=== PATIENT | male | born 1995 | race Hispanic/Latino ===

== ENCOUNTER 2018-07-25 08:40 | Emergency (ER) | payer SELFPAY ==
[2018-07-25 08:46] VITALS: BP 139/70
[2018-07-25] MEDS ORDERED: ZOFRAN IV ONE (09:11)
[2018-07-25] MEDS ORDERED: NACL 0.9% 1000 ML 1,000 ML IV ONE (09:11)
--- NOTE | 2018-07-25 09:17 | Emergency Department Report ---
ED General Adult HPI - General Chief complaint: Upper Respiratory Infection Stated complaint: FLU LIKE SYMPTOMS Time Seen by Provider: 07/25/18 09:04 Source: patient Mode of arrival: Ambulatory Limitations: No Limitations - History of Present Illness Initial comments: Patient presents to emergency department with a chief complaint nausea vomiting and feeling lightheaded that started yesterday. 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 Patient states the job he was working on yesterday spells come to [employer]. Patient states when he arrived home he felt lightheaded and had 4 or 5 episodes of vomiting. Patient states for the last 2-3 weeks she's had intermittent episodes of vomiting but yesterday was physically worse. Patient denies abdominal pain, chest pain, or shortness of breath. -: Sudden Severity scale (0 -10): 0 Consistency: constant Improves with: none Worsens with: none Associated Symptoms: denies other symptoms Treatments Prior to Arrival: none - Related Data Previous Rx's Medication Instructions Recorded Last Taken Type ALBUTEROL Inhaler(NF) [VENTOLIN 1 puff IH Q8H PRN #1 inha 07/05/18 Unknown Rx Inhaler(NF)] ALBUTEROL NEB's [Proventil 0.083% 2.5 mg IH TID PRN #1 box 07/05/18 Unknown Rx NEBS] Azithromycin [Zithromax Z-TRACE] 250 mg PO DAILY #6 tablet 07/05/18 Unknown Rx Benzonatate [Tessalon Perle] 100 mg PO Q8H PRN #20 capsule 07/05/18 Unknown Rx Ibuprofen [Motrin] 600 mg PO Q8H PRN #20 tablet 07/05/18 Unknown Rx Prednisone [predniSONE 10 mg 10 mg PO .TAPER #1 tab.ds.pk 07/05/18 Unknown Rx (6-Day Pack, 21 Tabs)] Ondansetron [Zofran Odt] 4 mg PO Q8HR PRN #12 tab.rapdis 07/25/18 Unknown Rx Promethazine [Phenergan TAB] 25 mg PO Q6HR PRN #20 tab 07/25/18 Unknown Rx Allergies Allergy/AdvReac Type Severity Reaction Status Date / Time No Known Allergies Allergy Unverified 07/05/18 11:58 ED Review of Systems ROS: Stated complaint: FLU LIKE SYMPTOMS Other details as noted in HPI Comment: All other systems reviewed and negative Constitutional: denies: chills, fever Eyes: denies: eye pain, eye discharge, vision change ENT: denies: ear pain, throat pain Respiratory: denies: cough, shortness of breath, wheezing Cardiovascular: denies: chest pain, palpitations Endocrine: no symptoms reported Gastrointestinal: denies: abdominal pain, nausea, diarrhea Genitourinary: denies: urgency, dysuria Musculoskeletal: denies: back pain, joint swelling, arthralgia Skin: denies: rash, lesions Neurological: denies: headache, weakness, paresthesias Psychiatric: denies: anxiety, depression Hematological/Lymphatic: denies: easy bleeding, easy bruising ED Past Medical Hx - Past Medical History Previous Medical History?: Yes Hx Asthma: Yes - Surgical History Past Surgical History?: Yes Additional Surgical History: tonsilectomy - Social History Smoking Status: Never Smoker Substance Use Type: None - Medications Home Medications: Home Medications Medication Instructions Recorded Confirmed Last Taken Type ALBUTEROL Inhaler(NF) [VENTOLIN 1 puff IH Q8H PRN #1 inha 07/05/18 Unknown Rx Inhaler(NF)] ALBUTEROL NEB's [Proventil 0.083% 2.5 mg IH TID PRN #1 box 07/05/18 Unknown Rx NEBS] Azithromycin [Zithromax Z-TRACE] 250 mg PO DAILY #6 tablet 07/05/18 Unknown Rx Benzonatate [Tessalon Perle] 100 mg PO Q8H PRN #20 capsule 07/05/18 Unknown Rx Ibuprofen [Motrin] 600 mg PO Q8H PRN #20 tablet 07/05/18 Unknown Rx Prednisone [predniSONE 10 mg 10 mg PO .TAPER #1 tab.ds.pk 07/05/18 Unknown Rx (6-Day Pack, 21 Tabs)] Ondansetron [Zofran Odt] 4 mg PO Q8HR PRN #12 tab.rapdis 07/25/18 Unknown Rx Promethazine [Phenergan TAB] 25 mg PO Q6HR PRN #20 tab 07/25/18 Unknown Rx ED Physical Exam - General Limitations: No Limitations General appearance: alert, in no apparent distress - Head Head exam: Present: atraumatic, normocephalic - Eye Eye exam: Present: normal appearance, PERRL, EOMI - ENT ENT exam: Present: mucous membranes dry - Neck Neck exam: Present: normal inspection - Respiratory Respiratory exam: Present: normal lung sounds bilaterally. Absent: respiratory distress, wheezes, rales - Cardiovascular Cardiovascular Exam: Present: regular rate, normal rhythm. Absent: systolic murmur, diastolic murmur, rubs, gallop - GI/Abdominal GI/Abdominal exam: Present: soft, normal bowel sounds - Rectal Rectal exam: Present: deferred - Extremities Exam Extremities exam: Present: normal inspection - Back Exam Back exam: Present: normal inspection - Neurological Exam Neurological exam: Present: alert, oriented X3, CN II-XII intact. Absent: motor sensory deficit - Psychiatric Psychiatric exam: Present: normal affect, normal mood - Skin Skin exam: Present: warm, dry, intact, normal color. Absent: rash ED Course Vital Signs 07/25/18 08:45 Temperature 98.1 F Pulse Rate 82 Respiratory 18 Rate Blood Pressure 139/70 O2 Sat by Pulse 99 Oximetry ED Medical Decision Making - Lab Data Result diagrams: 07/25/18 09:27 07/25/18 09:27 Lab Results 07/25/18 07/25/18 Range/Units 09:27 09:27 WBC 6.7 (4.5-11.0) K/mm3 RBC 5.18 H (3.65-5.03) M/mm3 Hgb 16.6 H (11.8-15.2) gm/dl Hct 47.0 H (35.5-45.6) % MCV 91 (84-94) fl MCH 32 (28-32) pg MCHC 35 H (32-34) % RDW 13.3 (13.2-15.2) % Plt Count 217 (140-440) K/mm3 Lymph % (Auto) 7.8 L (13.4-35.0) % [place] % (Auto) 5.1 (0.0-7.3) % Eos % (Auto) 0.1 (0.0-4.3) % Baso % (Auto) 0.4 (0.0-1.8) % Lymph # 0.5 L (1.2-5.4) K/mm3 [place] # 0.3 (0.0-0.8) K/mm3 Eos # 0.0 (0.0-0.4) K/mm3 Baso # 0.0 (0.0-0.1) K/mm3 Seg Neutrophils % 86.6 H (40.0-70.0) % Seg Neutrophils # 5.8 (1.8-7.7) K/mm3 Sodium 138 (137-145) mmol/L Potassium 4.0 (3.6-5.0) mmol/L Chloride 99.5 (98-107) mmol/L Carbon Dioxide 24 (22-30) mmol/L Anion Gap 19 mmol/L BUN 11 (9-20) mg/dL Creatinine 0.9 (0.8-1.5) mg/dL Estimated GFR > 60 ml/min BUN/Creatinine Ratio 12 % Glucose 111 H (75-100) mg/dL Calcium 9.3 (8.4-10.2) mg/dL Total Bilirubin 2.60 H (0.1-1.2) mg/dL AST 22 (5-40) units/L ALT 75 H (7-56) units/L Alkaline Phosphatase 80 (35-129) units/L Total Protein 7.5 (6.3-8.2) g/dL Albumin 4.7 (3.9-5) g/dL Albumin/Globulin Ratio 1.7 % - Medical Decision Making Discussed liver enzyme was also patient and the need to follow up with outpatient physician for further evaluation Patient states that he drinks occasionally but does not drink daily Critical care attestation.: If time is entered above; I have spent that time in minutes in the direct care of this critically ill patient, excluding procedure time. ED Disposition Clinical Impression: Nausea & vomiting, Serum total bilirubin elevated Disposition: - TO HOME OR SELFCARE Is pt being admited?: No Does the pt Need Aspirin: No Condition: Stable Instructions: Acute Nausea and Vomiting (ED) Additional Instructions: As discussed you need to follow-up with primary care physician for further blood testing and further evaluation of your liver enzymes Prescriptions: Ondansetron [Zofran Odt] 4 mg PO Q8HR PRN #12 tab.rapdis PRN Reason: Nausea Promethazine [Phenergan TAB] 25 mg PO Q6HR PRN #20 tab PRN Reason: Nausea Referrals: PRIMARY CARE, [Primary Care Provider] - 3-5 Days [facility] [Outside] - 3-5 Days [facility] [Provider Group] - 3-5 Days [facility] [Provider Group] - 3-5 Days [facility] [Provider Group] - 3-5 Days MARK TRAN MD [Staff Physician] - 3-5 Days Time of Disposition: 10:12
[2018-07-25 09:41] LABS: Basophils % (Auto) 0.4 % (0.0-1.8); Eosinophils % (Auto) 0.1 % (0.0-4.3); Hemoglobin 16.6 gm/dl (11.8-15.2); Lymphocytes # (Auto) 0.5 K/mm3 (1.2-5.4); Lymphocytes % (Auto) 7.8 % (13.4-35.0); Mean Corpuscular HGB Conc 35 % (32-34); Mean Corpuscular Volume 91 fl (84-94); Monocytes # (Auto) 0.3 K/mm3 (0.0-0.8); Monocytes % (Auto) 5.1 % (0.0-7.3); Platelet Count 217 K/mm3 (140-440); Red Blood Count 5.18 M/mm3 (3.65-5.03); Red Cell Distribution Width 13.3 % (13.2-15.2)
[2018-07-25 10:00] LABS: Alanine Aminotransferase 75 units/L (7-56); Albumin 4.7 g/dL (3.9-5); BUN/Creatinine Ratio 12; Blood Urea Nitrogen 11 mg/dL (9-20); Calcium 9.3 mg/dL (8.4-10.2); Hemolysis Index 20
== END 2018-07-25 10:30 | disposition home or self-care (01) ==
LOC: ED 08:40
DX: R11.2 Nausea with vomiting, unspecified (principal); E80.7 Disorder of bilirubin metabolism, unspecified; J45.909 Unspecified asthma, uncomplicated; Z90.89 Acquired absence of other organs
CPT/HCPCS: 36415; 80053; 85025; 96361; 96374; 99283; J2405

== ENCOUNTER 2020-07-09 06:37 | Emergency (ER) | payer SELFPAY | END 2020-07-09 08:24 | disposition left against medical advice (07) | LOC: ED 06:37 | DX: M79.676 Pain in unspecified toe(s) (principal); Z53.21 Procedure and treatment not carried out due to patient leaving prior to being seen by health care provider ==

== ENCOUNTER 2020-12-12 14:22 | Emergency (ER) | payer SELFPAY | END 2020-12-12 16:45 | disposition left against medical advice (07) | LOC: ED 14:22 ==

== ENCOUNTER 2021-01-29 06:27 | Emergency (ER) | payer SELFPAY ==
[2021-01-29 07:14] VITALS: BP 124/75
--- NOTE | 2021-01-29 10:05 | Emergency Department Report ---
ED ENT HPI - General Chief complaint: Earache Stated complaint: BAD EARACHE/HEADACHE & SOB Time Seen by Provider: 01/29/21 09:45 Source: patient Mode of arrival: Ambulatory Limitations: No Limitations - History of Present Illness Initial comments: 25-year-old male presents to the emergency room complaining of left ear discomfort and decreased hearing for about a week and a half. Patient also reports that he is running out of his asthma medication. Patient reports he does not have a primary care provider. Patient reports no cough and wheezing or any distress. MD complaint: ear pain Onset/Timin -: week(s) Location: R ear, L ear Severity: moderate Quality: aching, dull Consistency: intermittent Improves with: none Worsens with: none Associated Symptoms: hearing loss. denies: fever, cough, gum swelling, toothache, pain with swallowing, sore throat, discharge from ear - Related Data Previous Rx's Medication Instructions Recorded Last Taken Type ALBUTEROL Inhaler(NF) [VENTOLIN 1 puff IH Q8H PRN #1 inha 07/05/18 Unknown Rx Inhaler(NF)] ALBUTEROL NEB's [Proventil 0.083% 2.5 mg IH TID PRN #1 box 07/05/18 Unknown Rx NEBS] Azithromycin [Zithromax Z-TRACE] 250 mg PO DAILY #6 tablet 07/05/18 Unknown Rx Benzonatate [Tessalon Perle] 100 mg PO Q8H PRN #20 capsule 07/05/18 Unknown Rx Ibuprofen [Motrin] 600 mg PO Q8H PRN #20 tablet 07/05/18 Unknown Rx Prednisone [predniSONE 10 mg 10 mg PO .TAPER #1 tab.ds.pk 07/05/18 Unknown Rx (6-Day Pack, 21 Tabs)] Ondansetron [Zofran Odt] 4 mg PO Q8HR PRN #12 tab.rapdis 07/25/18 Unknown Rx Promethazine [Phenergan TAB] 25 mg PO Q6HR PRN #20 tab 07/25/18 Unknown Rx Allergies Allergy/AdvReac Type Severity Reaction Status Date / Time No Known Allergies Allergy Verified 12/12/20 15:00 ED Dental HPI - General Chief complaint: Earache Stated complaint: BAD EARACHE/HEADACHE & SOB Time Seen by Provider: 01/29/21 09:45 Source: patient Mode of arrival: Ambulatory Limitations: No Limitations - Related Data Previous Rx's Medication Instructions Recorded Last Taken Type ALBUTEROL Inhaler(NF) [VENTOLIN 1 puff IH Q8H PRN #1 inha 07/05/18 Unknown Rx Inhaler(NF)] ALBUTEROL NEB's [Proventil 0.083% 2.5 mg IH TID PRN #1 box 07/05/18 Unknown Rx NEBS] Azithromycin [Zithromax Z-TRACE] 250 mg PO DAILY #6 tablet 07/05/18 Unknown Rx Benzonatate [Tessalon Perle] 100 mg PO Q8H PRN #20 capsule 07/05/18 Unknown Rx Ibuprofen [Motrin] 600 mg PO Q8H PRN #20 tablet 07/05/18 Unknown Rx Prednisone [predniSONE 10 mg 10 mg PO .TAPER #1 tab.ds.pk 07/05/18 Unknown Rx (6-Day Pack, 21 Tabs)] Ondansetron [Zofran Odt] 4 mg PO Q8HR PRN #12 tab.rapdis 07/25/18 Unknown Rx Promethazine [Phenergan TAB] 25 mg PO Q6HR PRN #20 tab 07/25/18 Unknown Rx Allergies Allergy/AdvReac Type Severity Reaction Status Date / Time No Known Allergies Allergy Verified 12/12/20 15:00 ED Review of Systems ROS: Stated complaint: BAD EARACHE/HEADACHE & SOB Other details as noted in HPI Comment: All other systems reviewed and negative ED Past Medical Hx - Past Medical History Previous Medical History?: Yes Hx Asthma: Yes - Surgical History Past Surgical History?: Yes Additional Surgical History: tonsilectomy - Social History Smoking Status: Never Smoker Substance Use Type: None - Medications Home Medications: Home Medications Medication Instructions Recorded Confirmed Last Taken Type ALBUTEROL Inhaler(NF) [VENTOLIN 1 puff IH Q8H PRN #1 inha 07/05/18 Unknown Rx Inhaler(NF)] ALBUTEROL NEB's [Proventil 0.083% 2.5 mg IH TID PRN #1 box 07/05/18 Unknown Rx NEBS] Azithromycin [Zithromax Z-TRACE] 250 mg PO DAILY #6 tablet 07/05/18 Unknown Rx Benzonatate [Tessalon Perle] 100 mg PO Q8H PRN #20 capsule 07/05/18 Unknown Rx Ibuprofen [Motrin] 600 mg PO Q8H PRN #20 tablet 07/05/18 Unknown Rx Prednisone [predniSONE 10 mg 10 mg PO .TAPER #1 tab.ds.pk 07/05/18 Unknown Rx (6-Day Pack, 21 Tabs)] Ondansetron [Zofran Odt] 4 mg PO Q8HR PRN #12 tab.rapdis 07/25/18 Unknown Rx Promethazine [Phenergan TAB] 25 mg PO Q6HR PRN #20 tab 07/25/18 Unknown Rx ED Physical Exam - General Limitations: No Limitations General appearance: alert, in no apparent distress - Head Head exam: Present: atraumatic, normocephalic - Eye Eye exam: Present: normal appearance - Expanded ENT Exam Expanded TM/Canal exam: Cerumen Impaction: Right TM, Left TM - Neck Neck exam: Present: normal inspection, full ROM - Respiratory Respiratory exam: Present: normal lung sounds bilaterally. Absent: respiratory distress, wheezes, accessory muscle use - Cardiovascular Cardiovascular Exam: Present: regular rate - GI/Abdominal GI/Abdominal exam: Present: soft, tenderness. Absent: distended - Back Exam Back exam: Present: normal inspection, full ROM - Neurological Exam Neurological exam: Present: alert, oriented X3, normal gait - Psychiatric Psychiatric exam: Present: normal affect, normal mood - Skin Skin exam: Present: warm, dry, intact, normal color. Absent: rash ED Course Vital Signs 01/29/21 07:12 Temperature 98.2 F Pulse Rate 62 Respiratory 16 Rate Blood Pressure 124/75 O2 Sat by Pulse 99 Oximetry ED Medical Decision Making - Medical Decision Making 25-year-old male presents to the emergency room complaining of left ear discomfort and decreased hearing for about a week and a half. Patient also reports that he is running out of his asthma medication. Patient reports he does not have a primary care provider. Patient reports no cough and wheezing or any distress. Patient has bilateral ear cerumen impaction. Patient states he has 2 more package of his nebulizer treatment. Discussed with patient he can follow-up at the ear nose and throat provider as well as an urgent care or primary care for refills of his chronic medications. Patient is stable has no acute distress lungs are clear no use of accessory muscles vital signs are within normal limits. Patient is stable to be discharged to follow-up at her urgent care or primary care provider. Critical care attestation.: If time is entered above; I have spent that time in minutes in the direct care of this critically ill patient, excluding procedure time. ED Disposition Clinical Impression: Bilateral impacted cerumen, Asthma Disposition: TO HOME OR SELFCARE Is pt being admited?: No Does the pt Need Aspirin: No Condition: Stable Instructions: Asthma (ED), Ear Drops, Adult, [id number], Asthma, Adult, [id number] Additional Instructions: Recommend following up with the ear nose and throat provider and a primary care provider or urgent care for refills of your chronic medications. Referrals: PRIMARY CARE, [Primary Care Provider] - 3-5 Days [facility] [Provider Group] - 3-5 Days ANA BRAGA MD [Staff Physician] - 3-5 Days MELISSA JENKINS MD [Referring] - 3-5 Days SOPHIE OG MD [Staff Physician] - 3-5 Days Forms: Work/School Release Form(ED)
== END 2021-01-29 10:26 | disposition home or self-care (01) ==
LOC: ED 06:27
DX: H61.23 Impacted cerumen, bilateral (principal); J45.909 Unspecified asthma, uncomplicated; Z79.899 Other long term (current) drug therapy; Z90.49 Acquired absence of other specified parts of digestive tract; Z98.890 Other specified postprocedural states